=== PATIENT | male | born 1950 ===

== ENCOUNTER 2016-06-23 08:26 | Day surgery (SDC) | payer MEDICARE ==
[2016-06-23] MEDS ORDERED: Lactated Ringer's 500 ML IV ONE (08:49)
[2016-06-23] MEDS ORDERED: Propofol 10 mg/ml Inj (20 ML) ONE (11:22)
[2016-06-23 11:49] VITALS: TEMP 96.8
[2016-06-23 12:10] VITALS: BP 167/88; PULSE 75; RESP 17; O2SAT 100
== END 2016-06-23 12:11 | disposition home or self-care (01) ==
LOC: H.ENDO 08:26
PROVIDERS: ATTEND Internal Medicine Gastroenterology
DX: K30 Functional dyspepsia (principal); E78.5 Hyperlipidemia, unspecified; K44.9 Diaphragmatic hernia without obstruction or gangrene; K21.0 Gastro-esophageal reflux disease with esophagitis; K29.50 Unspecified chronic gastritis without bleeding
CPT/HCPCS: 43239; 88305; J2001; J2704; J7120